=== PATIENT | male | born 1980 | race Two or more races ===

== ENCOUNTER 2019-02-08 10:54 | Emergency (ER) | payer SELFPAY ==
[~2019-02-08] VITALS: Ht 175.3 cm; Wt 85.0 kg
[2019-02-08 12:30] LABS: HEMATOCRIT 46.4 % (39.0-50.0); HEMOGLOBIN 16.1 g/dl (14.0-18.0); IMMATURE GRANULOCYTES 0.5 % (0.0-5.0); MEAN CORPUSCULAR HGB 29.5 pG CALC (26.0-32.0); MEAN CORPUSCULAR HGB CONC 34.7 g/L CALC (32.0-36.0); NEUT# 8.05 thou/uL (1.82-7.42); RED BLOOD COUNT 5.46 mill/uL (4.70-6.10); RED CELL DISTRI WIDTH 12.8 % (11.5-15.5)
[2019-02-08 12:47] LABS: ALBUMIN 4.9 g/dL (3.2-5.0); ALKALINE PHOSPHATASE 61 u/l (38-126); ANION GAP 13 (6-22 (CALC)); BILIRUBIN, TOTAL 1.5 mg/dL (0.0-1.4); BUN 13 mg/dL (9-20); BUN/CREATININE RATIO 16 (12-20 (CALC)); CARBON DIOXIDE 33 mmol/l (22-30); CHLORIDE 99 mmol/l (95-108); CREATININE 0.8 mg/dL (0.7-1.3); GFR > 60 ML/MIN (>=60 (CALC)); GFR FOR AFR.AMER. > 60 ML/MIN (>=60 (CALC)); POTASSIUM 4.1 mmol/l (3.5-5.1); SGOT/AST 27 u/l (17-59); SODIUM 140 mmol/l (137-146); TOTAL PROTEIN 8.1 g/dL (6.3-8.2)
[2019-02-08] MEDS ORDERED: KEFLEX500 M1 PO (14:13)
[2019-02-08] MEDS ORDERED: PERCOCET 5/325M1 TAB PO (14:13)
[2019-02-08 15:33] VITALS: BP 118/67
== END 2019-02-08 15:30 | disposition home or self-care (01) | DRG 605 ==
LOC: ED 10:54
DX: S51.831A Puncture wound without foreign body of right forearm, initial encounter (principal); L03.113 Cellulitis of right upper limb; W45.0XXA Nail entering through skin, initial encounter; Y93.89 Activity, other specified; Y92.009 Unspecified place in unspecified non-institutional (private) residence as the place of occurrence of the external cause

== ENCOUNTER 2019-02-10 11:14 | Observation (INO) | payer SELFPAY ==
[~2019-02-10] VITALS: Ht 175.3 cm; Wt 81.8 kg
[~2019-02-10 11:14] MED LIST: KEFLEX500 M1 PO; PERCOCET 5/325M1 TAB PO
[2019-02-10 14:22] LABS: HEMATOCRIT 40.8 % (39.0-50.0); HEMOGLOBIN 14.3 g/dl (14.0-18.0); IMMATURE GRANULOCYTES 0.2 % (0.0-5.0); MEAN CELL VOLUME 86.3 fL CALC (80.0-100.0); MEAN CORPUSCULAR HGB 30.2 pG CALC (26.0-32.0); NEUT# 5.86 thou/uL (1.82-7.42); RED BLOOD COUNT 4.73 mill/uL (4.70-6.10); RED CELL DISTRI WIDTH 12.9 % (11.5-15.5)
[2019-02-10 14:39] LABS: ANION GAP 13 (6-22 (CALC)); BUN 11 mg/dL (9-20); BUN/CREATININE RATIO 15 (12-20 (CALC)); CARBON DIOXIDE 30 mmol/l (22-30); CHLORIDE 103 mmol/l (95-108); CREATININE 0.7 mg/dL (0.7-1.3); GFR > 60 ML/MIN (>=60 (CALC)); GFR FOR AFR.AMER. > 60 ML/MIN (>=60 (CALC)); POTASSIUM 3.9 mmol/l (3.5-5.1); SODIUM 141 mmol/l (137-146)
[2019-02-10 17:14] VITALS: BP 132/69
[2019-02-10 19:13] VITALS: BP 128/60
[2019-02-11 04:22] VITALS: BP 121/67
[2019-02-11 08:17] VITALS: BP 120/73
[2019-02-11 15:31] VITALS: BP 119/70
[2019-02-11 18:51] VITALS: BP 117/64
[2019-02-12 03:40] VITALS: BP 117/69
[2019-02-12 07:46] VITALS: BP 118/64
[2019-02-12] MEDS ORDERED: TRAMADOL HCL50 MG PO (10:56)
[2019-02-12] MEDS ORDERED: DOXYCYCL HYC100 MG PO (10:56)
[2019-02-12] MEDS ORDERED: AMOX/K CLAV875 M1 PO (10:56)
== END 2019-02-12 13:47 | disposition home or self-care (01) | DRG 603 ==
LOC: ED 11:14 → ED-I 13:14 → ED 15:18 → MS2 15:19
PROVIDERS: Family Medicine; ADMIT Internal Medicine; ATTEND Internal Medicine
PROC: 0H9DXZZ Drainage of Right Lower Arm Skin, External Approach (ICD-10-PCS; principal; 2019-02-10)
PROC: 3E0234Z Introduction of Serum, Toxoid and Vaccine into Muscle, Percutaneous Approach (ICD-10-PCS; 2019-02-10)
DX: L02.413 Cutaneous abscess of right upper limb (principal); L03.113 Cellulitis of right upper limb; S51.851A Open bite of right forearm, initial encounter; W54.0XXA Bitten by dog, initial encounter; Z23 Encounter for immunization
CPT/HCPCS: G0378; J1650; J3370

== ENCOUNTER 2019-02-13 18:49 | Emergency (ER) | payer SELFPAY ==
[~2019-02-13] VITALS: Ht 175.3 cm; Wt 80.0 kg
[~2019-02-13 18:49] MED LIST changes: +AMOX/K CLAV875 M1 PO; +DOXYCYCL HYC100 MG PO; +TRAMADOL HCL50 MG PO
[2019-02-13 18:56] VITALS: BP 134/80
== END 2019-02-13 19:14 | disposition left against medical advice (07) | DRG 951 ==
LOC: ED 18:49 → LWOBS 19:14
DX: Z91.19 Patient's noncompliance with other medical treatment and regimen (principal)